=== PATIENT | female | born 1990 | race Caucasian/White ===

== ENCOUNTER 2016-11-16 16:47 | Emergency (ER) | payer OTHER ==
--- NOTE | 2016-11-16 16:53 | UC ---
Respiratory Complaint HPI - HPI Summary HPI Summary: Cough chills and body aches began 3 days ago. - History of Current Complaint Stated Complaint: CONGEST,COUGH Time Seen by Provider: 11/16/16 16:52 Hx Obtained From: Patient Hx Last Menstrual Period: 09/21/14 ?: No Onset/Duration: Sudden Onset, Lasting Days - 3, Still Present Timing: Constant Severity Initially: Mild Severity Currently: Mild Character: Cough: Nonproductive Aggravating Factors: Nothing Alleviating Factors: Nothing Associated Signs And Symptoms: Positive: Chills, Pleuritic Chest Pain, URI, Nasal Congestion - Allergies/Home Medications Allergies/Adverse Reactions: Allergies Allergy/AdvReac Type Severity Reaction Status Date / Time Ibuprofen Allergy Hives Verified 11/16/16 16:56 PMH/Surg Hx/FS Hx/Imm Hx Previously Healthy: Yes Endocrine History Of: Denies: Diabetes, Thyroid Disease Cardiovascular History Of: Denies: Cardiac Disorders, Hypertension Respiratory History Of: Denies: COPD, Asthma GI/ History Of: Denies: Ulcer - Surgical History Surgical History: Yes Surgery Procedure, Year, and Place: 2011 - Family History Known Family History: Positive: None Family History: no reported cardiovascular issues - Social History Occupation: Employed Full-time Lives: With Family Alcohol Use: Occasionally Substance Use Type: None Smoking Status (MU): Never Smoked Tobacco Review of Systems Constitutional: Fever, Chills, Fatigue Skin: Negative Eyes: Negative ENT: Negative Respiratory: Cough Cardiovascular: Negative Gastrointestinal: Negative Genitourinary: Negative Motor: Negative Neurovascular: Negative Musculoskeletal: Arthralgia Neurological: Negative Psychological: Negative All Other Systems Reviewed And Are Negative: Yes Physical Exam Triage Information Reviewed: Yes Appearance: No Pain Distress, Well-Nourished, Ill-Appearing - mild Vital Signs Reviewed: Yes Eye Exam: Normal Eyes: Positive: Conjunctiva Clear ENT Exam: Normal ENT: Positive: Normal ENT inspection, Hearing grossly normal, Pharynx normal, TMs normal. Negative: Nasal congestion, Nasal drainage, Tonsillar swelling, Tonsillar exudate, Trismus, Muffled/hoarse voice Dental Exam: Normal Neck exam: Normal Neck: Positive: Supple, Nontender, No Lymphadenopathy Respiratory Exam: Normal Respiratory: Positive: Chest non-tender, Lungs clear, Normal breath sounds, No respiratory distress, No accessory muscle use Cardiovascular Exam: Normal Cardiovascular: Positive: RRR, No Murmur, Pulses Normal, Brisk Capillary Refill Musculoskeletal Exam: Normal Musculoskeletal: Positive: Strength Intact, ROM Intact, No Edema Neurological Exam: Normal Neurological: Positive: Alert, Muscle Tone Normal Psychological Exam: Normal Skin Exam: Normal UC Diagnostic Evaluation - Laboratory Diagnostic Studies Comment: Rapid Flu (-) Respiratory Course/Dx - Course Course Of Treatment: Albuterol, zithromax, increase fluids, rest follow with pcp re-check prn - Differential Dx/Diagnosis Differential Diagnosis/HQI/PQRI: Bronchitis, Influenza, Laryngitis, Lower Resp Infection, Sinusitis Provider Diagnoses: Acute Bronchitis Discharge - Discharge Plan Condition: Stable Disposition: HOME Prescriptions: Albuterol HFA INHALER* [Ventolin HFA Inhaler*] 2 puff INH Q6H PRN #1 mdi PRN Reason: cough/wheeze Azithromycin TAB* [Zithromax TAB (Z-JAMES) 250 mg #6 tabs] 2 tab PO .TODAY, THEN 1 DAILY #1 james Patient Education Materials: How to Use a Metered-Dose Inhaler (ED), Acute Bronchitis (ED), Acute Cough (ED) Forms: *Work Release Referrals: Jose Robbins MD [Primary Care Provider] - If Needed
[2016-11-16 16:56] VITALS: BP 112/75
== END 2016-11-16 17:35 | disposition home or self-care (01) ==
LOC: UCEAST 16:47
DX: J20.9 Acute bronchitis, unspecified (principal); Z88.6 Allergy status to analgesic agent
CPT/HCPCS: 87502; 99212; G0463

== ENCOUNTER 2017-07-24 15:08 | Emergency (ER) | payer OTHER ==
[2017-07-24 15:22] VITALS: BP 124/79
--- NOTE | 2017-07-24 16:03 | RAD ---
HISTORY: Head injury, left orbit pain COMPARISONS: None TECHNIQUE: Multiple contiguous axial CT scans were obtained of the face without intravenous contrast, with coronal and sagittal multiplanar reformations. FINDINGS: BONES: There is no displaced fracture or dislocation. The orbital rim is intact. The zygomatic arch is intact. The pterygoid plates are intact. ORBITS: The globes are round. The optic nerves are symmetric. The extraocular musculature is normal. There is no post septal or intraconal inflammatory change. There is no retrobulbar hematoma. PARANASAL SINUSES: The paranasal sinuses are clear. BRAIN AND SOFT TISSUE: Unremarkable. OTHER: None. IMPRESSION: NO FACIAL FRACTURE
--- NOTE | 2017-07-24 16:03 | RAD ---
HISTORY: Head injury, headache COMPARISONS: None TECHNIQUE: Multiple contiguous axial CT scans were obtained of the head without intravenous contrast. FINDINGS: HEMORRHAGE/INFARCT: There is no hemorrhage or acute infarct. MASSES/SHIFT: There is no mass or shift. EXTRA-AXIAL SPACES: There are no extra-axial fluid collections. SULCI AND VENTRICLES: The sulci and ventricles are normal in size and position for the patient's stated age. CEREBRUM: There are no focal parenchymal abnormalities. BRAINSTEM: There are no focal parenchymal abnormalities. CEREBELLUM: There are no focal parenchymal abnormalities. VESSELS: The vessels are grossly normal. PARANASAL SINUSES: The paranasal sinuses are clear. ORBITS: The orbits are unremarkable. BONES AND SOFT TISSUE: No bone or soft tissue abnormalities are noted. OTHER: None IMPRESSION: NO ACUTE INTRACRANIAL PATHOLOGY.
--- NOTE | 2017-07-24 16:26 | UC ---
Minor Trauma HPI - HPI Summary HPI Summary: Patient presents with complaints of head trauma that occurred while at work at 5 :30 am today. 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 She reports a 30 second loss of vision, no LOC. She states she had a headache, and vomiting x 1, and has had nausea since then. She reports some difficulty with focusing. She denies dizziness, lightheadedness , or neck pain. - History of Current Complaint Chief Complaint: UCHeadInjury Stated Complaint: HEADACHE/DIZZINESS Time Seen by Provider: 07/24/17 15:29 Hx Obtained From: Patient Hx Last Menstrual Period: 07/16/17 Onset/Duration: Sudden Onset Onset Of Pain: Immediate Severity Initially: Moderate Severity Currently: Moderate Mechanism Of Injury: Blunt Trauma Aggravating Factor(s): Movement Alleviating Factor(s): Rest Associated Signs And Symptoms: Positive: Ecchymosis, Swelling - Risk Factors Penetrating Injury Risk Factors: Negative Compartment Syndrome Risk Factors: Pain - Allergies/Home Medications Allergies/Adverse Reactions: Allergies Allergy/AdvReac Type Severity Reaction Status Date / Time Ibuprofen Allergy Hives Verified 07/24/17 15:22 Home Medications: Home Medications Sertraline* [Zoloft*] 1 tab PO DAILY 07/24/17 [History Confirmed 07/24/17] PMH/Surg Hx/FS Hx/Imm Hx Previously Healthy: Yes - Surgical History Surgical History: Yes Surgery Procedure, Year, and Place: 2011 - Family History Known Family History: Positive: None Family History: no reported cardiovascular issues - Social History Occupation: Employed Full-time Lives: Alone Alcohol Use: Occasionally Substance Use Type: None Smoking Status (MU): Never Smoked Tobacco Review of Systems Constitutional: Negative Skin: Negative Eyes: Negative ENT: Negative Respiratory: Negative Cardiovascular: Negative Gastrointestinal: Vomiting, Nausea Genitourinary: Negative Motor: Negative Neurovascular: Negative Musculoskeletal: Negative Neurological: Headache All Other Systems Reviewed And Are Negative: Yes Physical Exam Triage Information Reviewed: Yes Appearance: Well-Appearing Vital Signs: Initial Vital Signs Temp 97.8 F 07/24/17 15:19 Pulse 79 07/24/17 15:19 Resp 18 07/24/17 15:19 BP 124/79 07/24/17 15:19 Pulse Ox 100 07/24/17 15:19 Eye Exam: Normal ENT Exam: Normal Neck exam: Normal Neck: Positive: 1 Respiratory Exam: Normal Cardiovascular Exam: Normal Musculoskeletal Exam: Normal Neurological Exam: Normal Psychological Exam: Normal Skin Exam: Normal - minor soft tissue swelling noted of left adventism, slight bruising noted. slight tenderness to palpation. no crepitus or deformity note., Other Minor Trauma Course/Dx - Course Course Of Treatment: Patient presents s/p traumatic injury of the left adventism while at work at 5;30 am. She did report a brief loss of vision decribes as "black out" lasting 30 seconds. She since has had no visual disturbances. Neuro exam was normal. CT brain and max-facial were both read by the radiologist as normal. She dose display symptoms consistent with concussion. I did RX zofran, and recommend tylenol or advil or headache. I also discusssed with the patient that if her symtpoms worsen, persist to go to the ER for repeat imaging. I did take her out of work tonight. She was told not to drive, climb up on anything off the ground. She verbalized and was in agreement with the discharge plan. - Differential Dx/Diagnosis Differential Diagnosis/HQI/PQRI: Contusion(s), Other - head trauma concussion Provider Diagnoses: head trauma. concussion. contusion Discharge - Discharge Plan Condition: Stable Disposition: HOME Prescriptions: Ondansetron TAB* [Zofran 4 MG Tab*] 4 mg PO Q6H PRN #14 tab MDD 4 PRN Reason: Nausea Patient Education Materials: Concussion (ED), Head Injury (ED) Forms: *Work Release Referrals: Jose Robbins MD [Primary Care Provider] - Additional Instructions: If your symptoms worsen go directly to the ER.
== END 2017-07-24 16:18 | disposition home or self-care (01) ==
LOC: UCEAST 15:08
DX: S06.0X9A Concussion with loss of consciousness of unspecified duration, initial encounter (principal); W20.8XXA Other cause of strike by thrown, projected or falling object, initial encounter; Y92.9 Unspecified place or not applicable; T14.8XXA Other injury of unspecified body region, initial encounter
CPT/HCPCS: 70450; 70486; 99212; G0463

== ENCOUNTER 2018-01-29 16:05 | Emergency (ER) | payer OTHER ==
[2018-01-29 16:19] VITALS: BP 123/84
[2018-01-29] MEDS ORDERED: Ketorolac INJ* 60 MG/2 ML VIAL IM ONE (16:30)
--- NOTE | 2018-01-29 17:03 | RAD ---
INDICATION: Neck pain. COMPARISON: There are no prior studies available for comparison. TECHNIQUE: 5 views of the cervical spine were obtained including lateral, oblique, AP, open-mouth odontoid views. FINDINGS: C1-C7 are visualized. The vertebra are in normal alignment. No prevertebral soft tissue swelling or fracture is seen. Disc spaces appear maintained. IMPRESSION: NO EVIDENCE FOR FRACTURE OR SUBLUXATION.
--- NOTE | 2018-01-29 17:04 | RAD ---
INDICATION: Back pain. COMPARISON: There are no prior studies available for comparison. TECHNIQUE: AP and lateral films of the dorsal spine were obtained. FINDINGS: There is a mild dorsal scoliosis convex toward the right side. The vertebra are otherwise in normal alignment. No fracture is seen. There is mild degenerative disc disease present in the mid and lower dorsal spine. IMPRESSION: 1. MILD SCOLIOSIS. 2. MILD DEGENERATIVE DISC DISEASE.
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
== END 2018-01-29 17:30 | disposition home or self-care (01) ==
LOC: UCEAST 16:05
DX: M54.9 Dorsalgia, unspecified (principal); M54.2 Cervicalgia
CPT/HCPCS: 72050; 72070; 99212; G0463; J1885

== ENCOUNTER 2018-12-25 16:29 | Emergency (ER) | payer OTHER ==
[2018-12-25 17:01] VITALS: BP 134/83
--- OUTSIDE RECORDS SUMMARY | 2018-12-25 17:08 | XMS REPORT | Continuity of Care Document ---
:1990 External Reference #:[id number] Author Name Argelia David Care Team Providers Name Role Phone Patient's Choice Primary Care Physician Unavailable Payers Date Identification Numbers Payment Provider Subscriber Policy Number: [id number] [employer] Nino Damon PayID: [id number] [address] [place] [address] Advance Directives Description No Information Available Problems Description No Information Family History Description No Information Available Social History Type Date Description Comments Sex Unknown Lives With Occupation Currently Working ETOH Use Occasionally consumes alcohol Tobacco Use Start: Unknown Patient has never smoked Smoking Status Reviewed: 12/20/18 Patient has never smoked Exercise Type/Frequency Exercises regularly Allergies, Adverse Reactions, Alerts Date Description Reaction Status Severity Comments 11/12/2018 NSAIDS Active 11/12/2018 Pantoprazole Active Medications Medication Date Status Form Strength Qnty SIG Indications Ordering Provider Tramadol Active Tablets 37.5-325mg 15tabs 1 tab by Shanae Hydrochloride 019 dev Ye M.D. /Acetbettyphkrystal every n 4-6 hours as needed pain Omeprazole Active Capsules DR 10mg 1 by Unknown 000 mouth every day Carafate Active Tablets 1gm 1 by Unknown 000 mouth four times a day Control Active Unknown 000 Immunizations Description No Information Available Vital Signs Date Vital Result Comment 12/20/2018 8:16am Height 61.0 inches 5'1" Heart Rate 87 /min BP Systolic 120 mmHg BP Diastolic 78 mmHg Respiratory Rate 18 /min Body Temperature 98.0 F Pain Level 1 11/29/2018 9:29am Height 61.0 inches 5'1" Weight 176.00 lb BP Systolic 124 mmHg BP Diastolic 82 mmHg Respiratory Rate 14 /min Body Temperature 97.7 F Pain Level 2 BMI (Body Mass Index) 33.3 kg/m2 11/12/2018 10:08am Height 61.0 inches 5'1" Weight 176.00 lb BP Systolic 138 mmHg BP Diastolic 70 mmHg Pain Level 2 BMI (Body Mass Index) 33.3 kg/m2 Results Test Date Facility Test Result H/L Range Note Laboratory test 12/11/2018 [facility] Surgical SEE RESULT 1 , [address] [place] [address] [phone] 1 [id number] 2 SEE RESULT BELOW Name: JESSI DAMON : [address]: Shanae Ye MD Acct: [id number] Unit: [id number] AGE: 28 Location: [facility] Re12/11/18 SEX: F Status: DONNA DUTTA SPEC: [id number] CHRISTOPHER: 12/11/18-0752 [facility] [address]: Shanae Ye MD REQ: [id number] RECD: 12/11/18 STATUS: SOUT _ ORDERED: LEVEL 3 COMMENTS: [id number] FINAL DIAGNOSIS Soft tissue, left wrist, excision: -- Ganglion cyst. PRE-OPERATIVE DIAGNOSIS Left dorsal wrist ganglion. GROSS DESCRIPTION The specimen is received in formalin labeled, Ganglion Cyst Left Wrist, and consists of a 2.0 by up to 1.4 x 0.8 cm levine-white irregular rubbery fibrous tissue fragment with scant adherent fat. The specimen is serially sectioned and entirely submitted in one cassette. Signed by and Reported on: Jose Yeh MD 1550 END OF REPORT DEPARTMENT OF PATHOLOGY, [address] [place] [address] Jose Yeh M.D. Director [facility] # [id number] Procedures Date Code Description Status 11/20/2018 99439 Carpal Tunnel Release Completed 11/20/2018 91411 Carpal Tunnel Release Completed Encounters Type Date Location Provider Dx Diagnosis Office Visit 11/12/2018 [facility] Ye, G56.01 Carpal tunnel 10:00a [facility], right upper limb M67.432 Ganglion, left wrist Plan of Treatment Future Appointment(s):01/10/2019 8:30 am - Sh[facility] Ye M[facility] at [facility]2018 - Shanae Ye M.D.M67.432 Ganglion, left wristFollow up:Follow up: 3 [id number] Carpal tunnel syndrome, right upper limb
--- OUTSIDE RECORDS SUMMARY | 2018-12-25 17:08 | XMS REPORT | Continuity of Care Document ---
:1990 External Reference #:[id number] Author Name Argelia David Care Team Providers Name Role Phone Patient's Choice Primary Care Physician Unavailable Payers Date Identification Numbers Payment Provider Subscriber Policy Number: [id number] [employer] Nino Odonnell PayID: [id number] [address] [place] [address] Advance Directives Description No Information Available Problems Description No Information Family History Description No Information Available Social History Type Date Description Comments Sex Unknown Lives With Occupation Currently Working ETOH Use Occasionally consumes alcohol Tobacco Use Start: Unknown Patient has never smoked Smoking Status Reviewed: 11/29/18 Patient has never smoked Exercise Type/Frequency Exercises regularly Allergies, Adverse Reactions, Alerts Date Description Reaction Status Severity Comments 11/12/2018 NSAIDS Active 11/12/2018 Pantoprazole Active Medications Medication Date Status Form Strength Qnty SIG Indications Ordering Provider Tramadol Active Tablets 37.5-325mg 15tabs 1 tab by Shanae Hydrochloride 019 dev Ye M.D. /Acetaminophkrystal every n 4-6 hours as needed pain Omeprazole Active Capsules DR 10mg 1 by Unknown 000 mouth every day Carafate Active Tablets 1gm 1 by Unknown 000 mouth four times a day Control Active Unknown 000 Immunizations Description No Information Available Vital Signs Date Vital Result Comment 11/29/2018 9:29am Height 61.0 inches 5'1" Weight 176.00 lb BP Systolic 124 mmHg BP Diastolic 82 mmHg Respiratory Rate 14 /min Body Temperature 97.7 F Pain Level 2 BMI (Body Mass Index) 33.3 kg/m2 11/12/2018 10:08am Height 61.0 inches 5'1" Weight 176.00 lb BP Systolic 138 mmHg BP Diastolic 70 mmHg Pain Level 2 BMI (Body Mass Index) 33.3 kg/m2 Results Description No Information Available Procedures Date Code Description Status 11/20/2018 96551 Carpal Tunnel Release Completed 11/20/2018 33828 Carpal Tunnel Release Completed Encounters Type Date Location Provider Dx Diagnosis Office Visit 11/12/2018 [facility] Ye G56.01 Carpal tunnel 10:00a [facility], right upper limb M67.432 Ganglion, left wrist Plan of Treatment Future Appointment(s):12/27/2018 8:30 am - Sh[facility]e Ye M[facility] at [facility]/11/2018 7:30 am - PAUL Denny at [facility]/11/2018 7:30 am - Sh[facility]e Ye M.D. at [facility]/29/2018 - Shanae Ye M.D.G56.01 Carpal tunnel syndrome, right upper limbFollow up:Follow up: 4 weeks
--- NOTE | 2018-12-25 18:44 | ED ---
Lower Extremity - HPI Summary HPI Summary: Patient complains of right ankle pain status post mechanical fall today. Denies any other pain injury or symptoms. - History of Current Complaint Chief Complaint: EDExtremityLower Stated Complaint: MY RIGHT ANKLE PER PT Time Seen by Provider: 12/25/18 18:38 Hx Obtained From: Patient Mechanism Of Injury: Fall From A Standing Position Onset of Pain: Immediate Onset/Duration: Hours Severity Initially: Severe Severity Currently: Severe Pain Intensity: 8 Pain Scale Used: 0-10 Numeric Timing: Constant Location: Is Discrete @ Character Of Pain: Throbbing Associated Signs And Symptoms: Positive: Negative Aggravating Factor(s): Standing, Movement, Weight Bearing Alleviating Factor(s): Rest, Elevation Able to Bear Weight: Yes - Allergies/Home Medications Allergies/Adverse Reactions: Allergies Allergy/AdvReac Type Severity Reaction Status Date / Time ibuprofen Allergy Severe body hives Verified 12/25/18 17:04 pineapple Allergy Severe throat Verified 12/25/18 17:04 mina ranitidine Allergy Severe GI Upset Verified 12/25/18 17:04 NSAIDS (Non-Steroidal Allergy Intermediate Hives Verified 12/25/18 17:04 Anti-Inflamma pantoprazole Allergy Intermediate Rash Verified 12/25/18 17:04 PMH/Surg Hx/FS Hx/Imm Hx Endocrine/Hematology History: Denies: Hx Anticoagulant Therapy Cardiovascular History: Denies: Hx Pacemaker/ICD GI History: Reports: Hx Gastroesophageal Reflux Disease Sensory History: Reports: Hx Contacts or Glasses - glasses for reading Denies: Hx Hearing Aid Opthamlomology History: Reports: Hx Contacts or Glasses - glasses for reading EENT History: Denies: Hx Deafness Neurological History: Denies: Hx Dementia Psychiatric History: Reports: Hx Anxiety, Hx Depression - Cancer History Hx Chemotherapy: No - Surgical History Surgery Procedure, Year, and Place: c section, 2011, [place]. right carpal tunnel release 11/20/18 Hx Anesthesia Reactions: No Infectious Disease History: No Infectious Disease History: Denies: Traveled Outside the [place] in Last 30 Days - Social History Alcohol Use: Weekly Alcohol Amount: 1 per week Substance Use Type: Reports: None Smoking Status (MU): Never Smoked Tobacco Review of Systems Constitutional: Negative Eyes: Negative ENT: Negative Cardiovascular: Negative Respiratory: Negative Gastrointestinal: Negative Genitourinary: Negative Musculoskeletal: Other Skin: Negative Neurological: Negative Psychological: Normal All Other Systems Reviewed And Are Negative: Yes Physical Exam - Summary Physical Exam Summary: Minimal swelling to right ankle. No erythema ecchymosis, deformity noted. PMS intact distally. Triage Information Reviewed: Yes Vital Signs On Initial Exam: Initial Vitals Temp Pulse Resp BP Pulse Ox 97.3 F 100 16 134/83 96 12/25/18 16:58 12/25/18 16:58 12/25/18 16:58 12/25/18 16:58 12/25/18 16:58 Vital Signs Reviewed: Yes Appearance: Positive: Well-Appearing Skin: Positive: Warm Head/Face: Positive: Normal Head/Face Inspection Eyes: Positive: Normal Neck: Positive: Supple Respiratory/Lung Sounds: Positive: Clear to Auscultation Cardiovascular: Positive: Normal Abdomen Description: Positive: Nontender Musculoskeletal: Positive: Normal Neurological: Positive: Normal Psychiatric: Positive: Normal AVPU Assessment: Alert - [place] Coma Scale Best Eye Response: 4 - Spontaneous Best Motor Response: 6 - Obeys Commands Best Verbal Response: 5 - Oriented Coma Scale Total: 15 Diagnostics - Vital Signs Vital Signs Temp Pulse Resp BP Pulse Ox 12/25/18 16:58 97.3 F 100 16 134/83 96 - Laboratory Lab Statement: Any lab studies that have been ordered have been reviewed, and results considered in the medical decision making process. Lower Extremity Course/Dx - Course Course Of Treatment: Patient complains of right ankle pain status post mechanical fall today. Denies any other pain injury or symptoms. Physical exam :Minimal swelling to right ankle. No erythema ecchymosis, deformity noted. PMS intact distally. Vital signs within normal limits. X-ray right ankle negative for acute process. Patient on his crutches. Gel ankle splint applied. - Diagnoses Provider Diagnoses: Ankle sprain Discharge - Sign-Out/Discharge Documenting (check all that apply): Patient Departure Patient Received Moderate/Deep Sedation with Procedure: No - Discharge Plan Condition: Stable Disposition: HOME Patient Education Materials: Ankle Sprain (ED), Ankle Stirrup Splint (ED) Referrals: No Primary Care Phys,NOPCP [Primary Care Provider] - Alden Dubon MD [Medical Doctor] - Additional Instructions: Rest, ice, elevation and ibuprofen for pain and swelling of right ankle. Weightbearing as tolerated. If pain does not improve in 5-7 days follow-up with orthopedics Dr. Dubon for further evaluation. Return to the ED for any new or worsening symptoms. - Billing Disposition and Condition Condition: STABLE Disposition: Home
== END 2018-12-25 18:50 | disposition home or self-care (01) ==
LOC: MERGE 16:29 → ED 16:29
DX: S93.401A Sprain of unspecified ligament of right ankle, initial encounter (principal); K21.9 Gastro-esophageal reflux disease without esophagitis; F32.9 Major depressive disorder, single episode, unspecified; F41.9 Anxiety disorder, unspecified; W19.XXXA Unspecified fall, initial encounter; Y92.9 Unspecified place or not applicable
CPT/HCPCS: 99282

== ENCOUNTER 2020-01-04 08:49 | Emergency (ER) | payer OTHER ==
--- OUTSIDE RECORDS SUMMARY | 2020-01-04 08:53 | XMS REPORT | Summary of Care ---
:1990 Author Organization [facility] Address [address] [address] Care Team Providers Name Role Phone Cony Agudelo NP Primary Care Provider Reason for Referral MRI/CAT/PET Scan (Routine) Status Reason Specialty Diagnoses / Procedures Referred By Contact Referred To Contact Closed Diagnoses History of section Pee Venegas MD Procedures US PREG AFTER FIRST TRIME[address] [address] Reason for Visit MRI/CAT/PET Scan (Routine) Status Reason Specialty Diagnoses / Procedures Referred By Contact Referred To Contact Closed Diagnoses History of section Pee Venegas MD Procedures US PREG AFTER FIRST [address] [address] Encounter Details Date Type Department Care Team Description 12/26/2019 Hospital Encounter [facility] Outpatient [address] [address] Allergies Active Allergy Reactions Severity Noted Date Comments Ibuprofen Hives 11/27/2013 Lactose GI Reaction 10/18/2019 Pineapple Swelling 05/21/2012 Mouth and facial swelling Pantoprazole Rash 07/25/2018 Ranitidine GI Reaction 08/30/2018 Vomiting and constipation, yellow urine documented as of this encounter (statuses as of 12/28/2019) Medications Medication Sig Dispensed Refills Start Date End Date Status Multiple Take by mouth. 0 Active Vitamins-Minerals (MULTIVITAMIN ADULT PO) Levonorgest-Eth Take 1 Tab by 91 Tab 3 01/22/2019 Active Estrad 91-Day mouth DAILY. 0.15-0.03 MG Oral TabIndications: Encounter for other contraceptive management sucralfate (CARAFATE) Take 1 Tab by 360 Tab 1 03/18/2019 Active 1 GM Oral mouth FOUR TIMES TabIndications: DAILY. Gastritis without bleeding, unspecified chronicity, unspecified gastritis type Omeprazole 40 MG Oral Take 1 Cap by 90 Cap 3 04/19/2019 Active CAPSULE DELAYED mouth DAILY. RELEASE MV & Min Take 2 Tabs by 0 Active w/FA-DHA ( mouth DAILY. ADULT GUMMY/DHA/FA PO) ondansetron (ZOFRAN Take 1 Tab by 20 Tab 0 10/28/2019 Active ODT) 4 MG Oral TABLET mouth EVERY EIGHT DISPERSIBLE HOURS NEEDED (nasuea). Doxylamine-Pyridoxine Take 10 mg by 60 Tab 0 12/09/2019 01/08/2020 Active (DICLEGIS) 10-10 MG mouth DAILY Oral Tab EC NEEDED (Initial: Two tablets at bedtime on day 1 and 2; if symptoms persist, take 1 tablet in morning and 2 tablets at bedtime on day 3; if symptoms persist, may increase to 1 tablet in morning, 1 tablet mid-afternoon, and 2 tablets at bedtime on day 4 (maximum: doxylamine 40 mg/pyridoxine 40 mg (4 tablets) per day).) for up to 30 days. ondansetron (ZOFRAN) Take 1 Tab by 30 Tab 0 12/09/2019 Active 4 MG Oral TABLET mouth EVERY EIGHT DISPERSIBLE HOURS NEEDED (nausea/vomiting) . fluticasone (FLONASE) [place] 2 Sprays in 1 Bottle 2 12/09/2019 Active 50 MCG/ACT Nasal nose DAILY. Suspension documented as of this encounter (statuses as of 12/28/2019) Active Problems Problem Noted Date History of placental abruption 11/14/2019 History of section 10/18/2019 Overview: Requesting repeat and tubal 05/08/20 LH Estimated Date of Delivery Comments Yes 05/12/2020 Based on last menstrual period of 08/06/2019 documented as of this encounter (statuses as of 12/28/2019) Resolved Problems Problem Noted Date Resolved Date Right wrist pain 01/27/2016 05/25/2016 S/P section: non reasurring FHR 08/19/2012 05/25/2016 ADDITIONAL PHYSICIAN 08/09/2012 08/18/2012 Overview: Please page or call Dr. Cardenas when patient is in active labor. 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 , Estimated Date of Delivery: 08/24/12 by early u/s, with LMP of 08/19/11, engaged to father of the baby. Lab Results Lab Results Value Date/Time ABORH O POS 03/05/2012 0933 Lab Results Lab Results Value Date/Time HCT 34.0 05/21/2012 1136 and Lab Results Lab Results Value Date/Time HGB 11.8 05/21/2012 1136 Lab Results Lab Results Value Date/Time HBSA 0.05 03/05/2012 0950 Lab Results Lab Results Value Date/Time RPR NON REAC 03/05/2012 0950 Lab Results Lab Results Value Date/Time RUBELLA 11.1 03/05/2012 0950 Lab Results Lab Results Value Date/Time GGTT 78 05/21/2012 1050 Varicella without mention of complication 06/23/2009 02/05/2011 Allergic rhinitis, cause unspecified 04/02/2009 08/14/2012 Foster care child 04/02/2009 08/14/2012 Injury, other and unspecified, elbow, forearm, and wrist 11/17/20082010 Other general symptoms(780.99) 11/02/2005 02/05/2011 Backache, unspecified 09/26/2005 02/06/2012 Injury, other and unspecified, knee, leg, ankle, and foot 12/26/20042010 Injury, other and unspecified, unspecified site 12/09/2004 02/05/2011 Varicella without mention of complication 08/14/2012 Overview: age 46 years old documented as of this encounter (statuses as of 12/28/2019) Immunizations Name Administration Dates Next Due DTAP Vaccine 07/24/1998, 04/12/1994, 05/25/1993, 03/04/1993, 02/08/1993 HIB 04/12/1994, 05/25/1993, 03/04/1993, 02/08/1993 Hepatitis A Vaccine Peds 08/28/2009, 02/12/2009 Hepatitis B Vaccine 08/23/1993, 02/08/1993, 1992 Human Papillomavirus 06/23/2009, 02/12/2009, 12/04/2008 Influenza (IM) Preservative Free 06/23/2009 MENINGOCOCCAL CONJUGATE VACCINE 12/04/2008 MMR VACCINE 07/24/1998, 04/12/1994 Polio - Inactivated Vaccine 07/24/1998, 04/12/1994, 03/04/1993, 02/08/1993 TDAP Vaccine 06/19/2017, 12/04/2008 TETANUS & DIPHTHERIA TOXOID (OVER 7 07/13/2004 YRS) documented as of this encounter Social History Tobacco Use Types Packs/Day Years Used Date Never Smoker Smokeless Tobacco: Never Used Alcohol Use Drinks/Week oz/Week Comments No Estimated Date of Delivery Comments Yes 05/12/2020 Based on last menstrual period of 08/06/2019 Sex Assigned at Date Recorded Not on file documented as of this encounter Last Filed Vital Signs Not on filedocumented in this encounter Plan of Treatment Date Type Specialty Care Team Description 01/28/2020 change management administrator Iggy Alcazar MD [address] [address] [phone] Health Maintenance Due Date Last Done Comments INFLUENZA VACCINE (#1) 2019 06/23/2009 PAP SMEAR 04/24/2020 04/24/2017, 11/06/2013, 11/06/2013 DEPRESSION SCREENING 10/18/2020 10/18/2019 DTaP/Tdap/Td Vaccines (9 - 06/19/2027 06/19/2017, 12/04/2008, Tdap) 07/13/2004, Additional history exists MENINGOCOCCAL VACCINE IMM Completed 12/04/2008 HPV IMMUNIZATION SERIES Completed 06/23/2009, 06/23/2009, 02/12/2009, Additional history exists HEPATITIS A IMMUNIZATION Completed 08/28/2009, 02/12/2009 SERIES HIV SCREENING Completed 10/18/2019, 03/05/2012 PNEUMOCOCCAL 0-64 YRS Aged Out No longer eligible based on patient's age to complete this topic documented as of this encounter Procedures Procedure Name Priority Date/Time Associated Diagnosis Comments US PREG AFTER FIRST STAT 12/26/2019 11:48 AM History of Results for this TRIMESTER EDT section procedure are in the results section. documented in this encounter Results US PREG AFTER FIRST TRIMESTER (12/26/2019 11:48 AM EDT) Specimen Impressions Performed At Single live intrauterine gestation in cephalic presentation showing expected interval growth with composite sonographic age of 19 weeks 5 days based on today's measurements. EFW 306 g ( 16th percentile). anatomic survey is complete and shows no obvious abnormalities.. Fundal placenta which appears bilobed with possible velamentous cord insertion site in between the 2 lobes. Urgency: IMPORTANT. This report contains IMPORTANT results which require clinical attention. Recommendation: Consider short interval follow-up imaging to assure adequate growth. Signed by Alden Delgado MD on 12/27/2019 9:38 AM Narrative Performed At Procedure(s): US PREG AFTER FIRST TRIMESTER Date of service: 12/26/2019 10:24 AM Provided clinical information: 29 years, Female, " anatomy survey" Procedure and materials: Standard protocol. Comparison studies: None. Observations: A single live Intrauterine is identified. The presentation is cephalic The placenta is fundal with no evidence of previa the. It however appears bilobed with fairly equal portions extending anteriorly and posteriorly and possible velamentous cord insertion in between 2 lobes. The cervical os is closed and the maternal cervical length is 5.4 cm The heart rate is 155 bpm. The amount of amniotic fluid is visually adequate . anatomy namely a 4 chamber heart and right and left ventricular outflow tracts, head and intracranial structures (cerebellum, cisterna magna, lateral ventricles, cavum septum pellucidum , choroid plexus, ) , nuchal fold thickness, face (orbits, nose and lips region, face in profile, nasal bone ) , spine (cervical , thoracic, lumbar, sacral), upper and lower extremities, diaphragm, stomach, kidneys, urinary bladder, three-vessel cord and its abdominal insertion site are all identified -and show no obvious abnormality. . The following sonographic measurements were obtained. BPD 4.5 cm, 19 weeks 5 days HC 17.3 cm, 19 weeks 6 days AC 14.7 cm, 20 weeks 0 days FL 3.0 cm, 19 weeks 2 days The estimated gestational age based on these measurements is 19 weeks 5 days indicating interval growth. The estimated weight is 306 g which is in the 16th percentile Procedure Note Interface, Rad Results - 12/27/2019 9:40 AM EDT Procedure(s): US PREG AFTER FIRST TRIMESTER Date of service: 12/26/2019 10:24 AM Provided clinical information: 29 years, Female, " anatomy survey" Procedure and materials: Standard protocol. Comparison studies: None. Observations: A single live Intrauterine is identified. The presentation is cephalic The placenta is fundal with no evidence of previa the. It however appears bilobed with fairly equal portions extending anteriorly and posteriorly and possible velamentous cord insertion in between 2 lobes. The cervical os is closed and the maternal cervical length is 5.4 cm The heart rate is 155 bpm. The amount of amniotic fluid is visually adequate . anatomy namely a 4 chamber heart and right and left ventricular outflow tracts, head and intracranial structures (cerebellum, cisterna magna, lateral ventricles, cavum septum pellucidum , choroid plexus, ) , nuchal fold thickness, face (orbits, nose and lips region, face in profile, nasal bone ) , spine (cervical , thoracic, lumbar, sacral), upper and lower extremities, diaphragm, stomach, kidneys, urinary bladder, three-vessel cord and its abdominal insertion site are all identified -and show no obvious abnormality. . The following sonographic measurements were obtained. BPD 4.5 cm, 19 weeks 5 days HC 17.3 cm, 19 weeks 6 days AC 14.7 cm, 20 weeks 0 days FL 3.0 cm, 19 weeks 2 days The estimated gestational age based on these measurements is 19 weeks 5 days indicating interval growth. The estimated weight is 306 g which is in the 16th percentile IMPRESSION Single live intrauterine gestation in cephalic presentation showing expected interval growth with composite sonographic age of 19 weeks 5 days based on today's measurements. EFW 306 g ( 16th percentile). anatomic survey is complete and shows no obvious abnormalities.. Fundal placenta which appears bilobed with possible velamentous cord insertion site in between the 2 lobes. Urgency: IMPORTANT. This report contains IMPORTANT results which require clinical attention. Recommendation: Consider short interval follow-up imaging to assure adequate growth. Signed by Alden Delgado MD on 12/27/2019 9:38 AM documented in this encounter Visit Diagnoses Diagnosis History of section Other postprocedural status documented in this encounter Insurance Payer Benefit Plan / Subscriber ID Effective Dates Phone Address Type Group [employer]CIAL [employer] [id number] 2018-Present [employer] (Home) [facility] [phone] (Work) [place] [address] documented as of this encounter
--- OUTSIDE RECORDS SUMMARY | 2020-01-04 08:53 | XMS REPORT | Summary of Care ---
:1990 Author Organization [facility] Address 1 [facility] [place] [address] Care Team Providers Name Role Phone Cony Agudelo NP Primary Care Provider Reason for Visit Reason Comments Fall Encounter Details Date Type Department Care Team Description 12/26/2019 - Emergency [facility] Emergency Department Ehsna Hopkins DO Emergency 12/27/[address] [facility] [place] [address] [place] [address] [phone] Allergies Active Allergy Reactions Severity Noted Date [...] DISPERSIBLE HOURS NEEDED (nausea/vomiting) . fluticasone (FLONASE) [place] 2 Sprays in 1 Bottle 2 12/09/2019 Active 50 MCG/ACT Nasal nose DAILY. 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 , Estimated Date of Delivery: 08/24/12 [...] of this encounter Last Filed Vital Signs Vital Sign Reading Time Taken Comments Blood Pressure 110/58 12/26/2019 11:00 PM EDT Pulse 72 12/27/2019 3:30 AM EDT Temperature 36.2 12/26/2019 9:52 PM EDT C (97.1 F) Respiratory Rate 18 12/27/2019 3:30 AM EDT Oxygen Saturation 99% 12/27/2019 3:30 AM EDT Inhaled Oxygen Concentration - - Weight 77.6 kg (171 lb) 12/26/2019 9:45 PM EDT Height 154.9 cm (5' 1") 12/26/2019 9:45 PM EDT Body Mass Index 32.31 12/26/2019 9:45 PM EDT documented in this encounter Discharge Instructions Ehsan oJvel DO - 12/27/2019Tylenol 650 mg every 4 hours as needed for pain Consider ice 4-5 times daily x10 to 15 minutes Return to the emergency department if worsening symptoms documented in this encounter Plan of Treatment Date Type Specialty Care Team Description 01/28/2020 risk specialist Iggy Alcazar MD [address] [place] [address] [phone] Health Maintenance Due Date Last Done Comments [...] encounter Procedures Procedure Name Priority Date/Time Associated Comments Diagnosis US LIMITED STAT 12/27/2019 2:43 Results for this STUDY AM EDT procedure are in the results section. CBC WITH DIFFERENTIAL STAT 12/27/2019 1:39 Results for this AM EDT procedure are in the results section. XR HIP 2 VIEWS Routine 12/27/2019 12:22 Results for this UNILATERAL LEFT AM EDT procedure are in the results section. XR RIBS UNILAT WITH STAT 12/27/2019 12:16 Results for this PA CHEST MIN 3 VIEWS AM EDT procedure are in RIGHT the results section. XR FINGER OR FINGERS STAT 12/27/2019 12:13 Results for this MIN 2 VIEWS LEFT AM EDT procedure are in (STANDARD) the results section. documented in this encounter Results US LIMITED STUDY (12/27/2019 2:43 AM EDT) Specimen Impressions Performed At Single living intrauterine fetus. No acute complication evident. Signed by Pierce Ruiz on 12/27/2019 2:46 AM Narrative Performed At Procedure(s): US LIMITED STUDY Date of service: 12/27/2019 2:23 AM Provided clinical information: 29 years, Female, "20 weeks trauma, check placenta and viability" Procedure and materials: Limited transabdominal obstetrical ultrasound was performed. Comparison studies: Earlier today and 10/18/2019. Observations: There is a living single intrauterine fetus in transverse maternal right positioning. Normal heart rate of 143 bpm. assessment is otherwise limited. Amniotic fluid volume is grossly within normal limits. The placenta is anterior wrapping posteriorly across the left uterus and appears grossly within normal limits with no evidence for abruption. The cervix is long and closed measuring 4 cm in length. Procedure Note Interface, Rad Results - 12/27/2019 2:48 AM EDT Procedure(s): US LIMITED STUDY Date of service: 12/27/2019 2:23 AM Provided clinical information: 29 years, Female, "20 weeks trauma, check placenta and viability" Procedure and materials: Limited transabdominal obstetrical ultrasound was performed. Comparison studies: Earlier today and 10/18/2019. Observations: There is a living single intrauterine fetus in transverse maternal right positioning. Normal heart rate of 143 bpm. assessment is otherwise limited. Amniotic fluid volume is grossly within normal limits. The placenta is anterior wrapping posteriorly across the left uterus and appears grossly within normal limits with no evidence for abruption. The cervix is long and closed measuring 4 cm in length. IMPRESSION Single living intrauterine fetus. No acute complication evident. Signed by Pierce Ruiz on 12/27/2019 2:46 AM CBC WITH DIFFERENTIAL (12/27/2019 1:39 AM EDT) WBC Count 7.50 3.98 - 10.04 K/uL [facility] RBC Count 3.64 (L) 3.93 - 5.22 M/UL [facility] Hemoglobin 11.5 11.2 - 15.7 g/dL [facility] Hematocrit 33.3 (L) 34.1 - 44.9 % [facility] MCV 91.5 79.4 - 94.8 FL [facility] MCH 31.6 25.6 - 32.2 PG [facility] MCHC 34.5 32.2 - 35.5 g/dL [facility] Platelet Count 233 182 - 369 K/uL [facility] MPV 9.3 (L) 9.4 - 12.3 FL [facility] RDW 13.1 11.7 - 14.4 % [facility] Neutrophil % 67.7 34.0 - 71.1 % [facility] Lymphocyte % 25.1 19.3 - 51.7 % [facility] Monocyte % 6.4 4.7 - 12.5 % [facility] Eosinophil % 0.4 (L) 0.7 - 5.8 % [facility] Basophil % 0.1 0.1 - 1.2 % [facility] nRBC % 0.0 0.0 - 0.2 % [facility] Neutrophil # 5.08 1.56 - 6.13 K/UL [facility] Lymphocyte # 1.88 1.18 - 3.74 K/UL [facility] Monocyte # 0.48 0.24 - 0.86 K/UL [facility] Eosinophil # 0.03 (L) 0.04 - 0.36 K/UL [facility] Basophil # 0.01 0.01 - 0.08 K/UL [facility] Immature Gran % 0.3 0.0 - 0.4 % [facility] Immature Gran # 0.02 0.00 - 0.03 K/uL [facility] NRBC # 0.00 0.00 - 0.12 K/uL [facility] Specimen Blood - Blood specimen (specimen) Performing Organization Address City/State/Zipcode Phone Number [facility] [address] [place] [address] XR HIP 2 VIEWS UNILATERAL LEFT (12/27/2019 12:22 AM EDT) Specimen Impressions Performed At Negative left hip. Signed by Pierce Ruiz on 12/27/2019 12:56 AM Narrative Performed At Procedure(s): XR HIP 2 VIEWS UNILATERAL LEFT Date of service: 12/26/2019 11:48 PM Provided clinical information: 29 years, Female, "pt fell. pain left hip. pt is 20 weeks " Procedure and materials: Standard protocol. Comparison studies: None. Observations: Side: Two-view left hip. Bones: Intact with no displaced fracture or focal osseous destruction. Joints: There is anatomic alignment of the hip with normal joint space. Soft tissues: Unremarkable. Procedure Note Interface, Rad Results - 12/27/2019 12:58 AM EDT Procedure(s): XR HIP 2 VIEWS UNILATERAL LEFT Date of service: 12/26/2019 11:48 PM Provided clinical information: 29 years, Female, "pt fell. pain left hip. pt is 20 weeks " Procedure and materials: Standard protocol. Comparison studies: None. Observations: Side: Two-view left hip. Bones: Intact with no displaced fracture or focal osseous destruction. Joints: There is anatomic alignment of the hip with normal joint space. Soft tissues: Unremarkable. IMPRESSION Negative left hip. Signed by Pierce Ruiz on 12/27/2019 12:56 AM XR RIBS UNILAT WITH PA CHEST MIN 3 VIEWS RIGHT (12/27/2019 12:16 AM EDT) Specimen Impressions Performed At Negative chest and rib series. Signed by Pierce Ruiz on 12/27/2019 12:57 AM Narrative Performed At Procedure(s): XR RIBS UNILAT WITH PA CHEST MIN 3 VIEWS RIGHT Date of service: 12/26/2019 11:48 PM Provided clinical information: 29 years, Female, "fall, pain right ribs, 20 weeks " Procedure and materials: Standard protocol. Comparison studies: None. Observations: The lungs are clear. There is no pneumothorax or effusion. The cardiomediastinal silhouette is normal. There is no acute osseous abnormality. The ribs are unremarkable. Procedure Note Interface, Rad Results - 12/27/2019 12:59 AM EDT Procedure(s): XR RIBS UNILAT WITH PA CHEST MIN 3 VIEWS RIGHT Date of service: 12/26/2019 11:48 PM Provided clinical information: 29 years, Female, "fall, pain right ribs, 20 weeks " Procedure and materials: Standard protocol. Comparison studies: None. Observations: The lungs are clear. There is no pneumothorax or effusion. The cardiomediastinal silhouette is normal. There is no acute osseous abnormality. The ribs are unremarkable. IMPRESSION Negative chest and rib series. Signed by Pierce Ruiz on 12/27/2019 12:57 AM XR FINGER OR FINGERS MIN 2 VIEWS LEFT (STANDARD) (12/27/2019 12:13 AM EDT) Specimen Impressions Performed At No acute osseous or articular abnormality evident. Signed by Pierce Ruiz on 12/27/2019 12:19 AM Narrative Performed At Procedure(s): XR FINGER OR FINGERS MIN 2 VIEWS LEFT (STANDARD) Date of service: 12/26/2019 11:47 PM Provided clinical information: 29 years, Female, "pain left thenar eminence pt is 20 weeks " Procedure and materials: Standard protocol. Comparison studies: 02/18/2018 Observations: Side: Two-view left thumb. Bones: Intact with no displaced fracture or focal osseous destruction. Joints: There is anatomic alignment with normal joint spaces. Soft tissues: Unremarkable. Procedure Note Interface, Rad Results - 12/27/2019 12:21 AM EDT Procedure(s): XR FINGER OR FINGERS MIN 2 VIEWS LEFT (STANDARD) Date of service: 12/26/2019 11:47 PM Provided clinical information: 29 years, Female, "pain left thenar eminence pt is 20 weeks " Procedure and materials: Standard protocol. Comparison studies: 02/18/2018 Observations: Side: Two-view left thumb. Bones: Intact with no displaced fracture or focal osseous destruction. Joints: There is anatomic alignment with normal joint spaces. Soft tissues: Unremarkable. IMPRESSION No acute osseous or articular abnormality evident. Signed by Pierce Ruiz on 12/27/2019 12:19 AM documented in this encounter Visit Diagnoses Diagnosis Contusion of rib on right side, initial encounter Contusion of left hand, initial encounter Contusion of left hip, initial encounter documented in this encounter Administered Medications Medication Order MAR Action Action Date Dose Rate Site acetaminophen (TYLENOL) tablet Given 12/26/2019 11:29 PM EDT 650 mg 650 mg 650 mg, Oral, NOW, 1 dose, Pascale 12/26/19 at 2300 documented in this encounter Insurance Payer Benefit Plan / Subscriber ID Effective Dates Phone Address Type Group [employer] COMM[employer]CIAL AETNA [id number] 2018-Present [employer] (Home) [facility] [phone] ([place]) [place] [address] documented as of this encounter
--- OUTSIDE RECORDS SUMMARY | 2020-01-04 08:53 | XMS REPORT | Summary of Care ---
:1990 Author Organization [facility] Address [address] [place] [address] Care Team Providers Name Role Phone MagnusCony Todd MORALES Primary Care Provider Reason for Visit Reason Comments Congestion Ear Pain Encounter Details Date Type Department Care Team Description 12/09/2019 Emergency [facility] Emergency Department Daniel Galvan MD Emergency [address] [place] [address] [place] [address] Allergies Active Allergy Reactions Severity Noted Date Comments Ibuprofen Hives 11/27/2013 Lactose GI Reaction 10/18/2019 Pineapple Swelling 05/21/2012 Mouth and facial swelling Pantoprazole Rash 07/25/2018 Ranitidine GI Reaction 08/30/2018 Vomiting and constipation, yellow urine documented as of this encounter (statuses as of 12/10/2019) Medications Medication Sig Dispensed Refills Start Date [...] DISPERSIBLE HOURS NEEDED (nausea/vomiting) . fluticasone (FLONASE) [place] 2 Sprays in 1 Bottle 2 12/09/2019 Active 50 MCG/ACT Nasal nose DAILY. Suspension documented as of this encounter (statuses as of 12/10/2019) Active Problems Problem Noted Date History of placental abruption 11/14/2019 History of section 10/18/2019 Overview: Requesting repeat and tubal Estimated Date of Delivery Comments Yes 05/12/2020 Based on last menstrual period of 08/06/2019 documented as of this encounter (statuses as of 12/10/2019) Resolved Problems Problem Noted Date Resolved Date Right wrist pain 01/27/2016 05/25/2016 S/P section: non reasurring FHR 08/19/2012 05/25/2016 ADDITIONAL PHYSICIAN 08/09/2012 08/18/2012 Overview: Please page or call Dr. Cardenas when patient is in active labor. 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 , Estimated Date of Delivery: 08/24/12 [...] as of this encounter (statuses as of 12/10/2019) Immunizations Name Administration Dates Next Due DTAP [...] Sign Reading Time Taken Comments Blood Pressure 145/64 12/09/2019 12:38 PM EST Pulse 84 12/09/2019 12:38 PM EST Temperature 36.9 12/09/2019 12:38 PM EST C (98.5 F) Respiratory Rate 16 12/09/2019 12:38 PM EST Oxygen Saturation 98% 12/09/2019 12:38 PM EST Inhaled Oxygen Concentration - - Weight - - Height - - Body Mass Index - - documented in this encounter Discharge Instructions Nelly Gao RN - 12/09/2019Diclegis instructions (1st line for nausea): Two tablets at bedtime on day 1 and 2; if symptoms persist, take 1 tablet in morning and 2 tablets at bedtime on day 3; if symptoms persist, may increase to1 tablet in morning, 1 tablet mid-afternoon, and 2 tablets at bedtime on day 4 (maximum: doxylamine 40 mg/pyridoxine 40 mg (4 tablets) per day ). Zofran (2nd line for nausea) as discussed. No signs of bacterial sinusitis, upper respiratory infection of placental abruption were found. HR was 143 at the bedside with good movement and was unremarkable. Return to ED if abdominal pain presents, fevers, worsening symptoms, onset of new symptoms, or if there is any other concern that is thought to need medical evaluation. Follow up with PCP or ADMINISTRATIVE OFFICE SPECIALIST for further management. documented in this encounter Plan of Treatment Date Type Specialty Care Team Description 12/26/2019 law enforcement officer Rafa Florez MD [address] [place] [address] [phone] 12/26/2019 Appointment Radiology Health Maintenance Due Date Last Done Comments [...] this topic documented as of this encounter Results Not on filedocumented in this encounter Visit Diagnoses Diagnosis Sinusitis, unspecified chronicity, unspecified location documented in this encounter Administered Medications Medication Order MAR Action Action Date Dose Rate Site ondansetron (ZOFRAN ODT) soluble Given 12/09/2019 11:58 AM EST 4 mg tablet 4 mg 4 mg, Oral, X1, 1 dose, First dose on 12/09/19 at 1210 documented in this encounter Insurance Payer Benefit Plan / Subscriber ID Effective Dates Phone Address Type Group [employer] COMM[employer]CIAL A[employer]NA [id number] 2018-Present [employer] (Home) [facility] [phone] (Work) [place] [address] documented as of this encounter
--- OUTSIDE RECORDS SUMMARY | 2020-01-04 08:53 | XMS REPORT | Summary of Care ---
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; [place] [address] [address] 18 weeks gestation of ; [phone] [place] [address] Acute intractable headache, unspecified headache type [phone] Allergies Active Allergy Reactions Severity Noted Date Comments Ibuprofen Hives 11/27/2013 Lactose GI Reaction 10/18/2019 Pineapple Swelling 05/21/2012 Mouth and facial swelling Pantoprazole Rash 07/25/2018 Ranitidine GI Reaction 08/30/2018 Vomiting and constipation, yellow urine documented as of this encounter (statuses as of 12/09/2019) Medications Medication Sig Dispensed Refills Start Date End Date Status Multiple Take by mouth. 0 Active Vitamins-Minerals (MULTIVITAMIN ADULT PO) Levonorgest-Eth Estrad Take 1 Tab by 91 Tab 3 01/22/2019 Active 91-Day 0.15-0.03 MG Oral mouth DAILY. TabIndications: Encounter for other contraceptive management sucralfate (CARAFATE) 1 Take 1 Tab by 360 Tab 1 03/18/2019 Active GM Oral TabIndications: mouth FOUR TIMES Gastritis without DAILY. bleeding, unspecified chronicity, unspecified gastritis type Omeprazole 40 MG Oral Take 1 Cap by 90 Cap 3 04/19/2019 Active CAPSULE DELAYED RELEASE mouth DAILY. MV & Min Take 2 Tabs by 0 Active w/FA-DHA ( ADULT mouth DAILY. GUMMY/DHA/FA PO) ondansetron (ZOFRAN ODT) Take 1 Tab by 20 Tab 0 10/28/2019 Active 4 MG Oral TABLET mouth EVERY DISPERSIBLE EIGHT HOURS NEEDED (nasuea). documented as of this encounter (statuses as of 12/09/2019) Active Problems Problem Noted Date History of placental abruption 11/14/2019 History of section 10/18/2019 Overview: Requesting repeat and tubal Estimated Date of Delivery Comments Yes 05/12/2020 Based on last menstrual period of 08/06/2019 documented as of this encounter (statuses as of 12/09/2019) Resolved Problems Problem Noted Date Resolved Date Right wrist pain 01/27/2016 05/25/2016 S/P section: non reasurring FHR 08/19/2012 05/25/2016 ADDITIONAL PHYSICIAN 08/09/2012 08/18/2012 Overview: Please page or call Dr. Cardenas when patient is in active labor. 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 , Estimated Date of Delivery: 08/24/12 [...] as of this encounter (statuses as of 12/09/2019) Immunizations Name Administration Dates Next Due DTAP [...] Sign Reading Time Taken Comments Blood Pressure 102/70 12/09/2019 8:47 AM EST Pulse 89 12/09/2019 8:47 AM EST Temperature 37.2 12/09/2019 8:47 AM EST C (98.9 F) Respiratory Rate 20 12/09/2019 8:47 AM EST Oxygen Saturation 99% 12/09/2019 8:47 AM EST Inhaled Oxygen Concentration - - Weight - - Height - - Body Mass Index - - documented in this encounter Progress Notes Jacinda Barton FNP-C - 12/09/2019 8:10 AM EST 29 yo female , 18 weeks with 2-3 days of increasing dizziness, headaches, runny nose. She is becoming very concerned about the dizziness. Has had stuffiness x 3 weeks. She feels the dizziness is becoming more prominent. She is crying today as she feels there is something more worrisome, especially since she is . This is her 2nd child. Hx of placental abruption in past also. Pt is very tearful today. At this point, exam appears benign other than some mild clear nasal congestion. Ears are normal andno infections or effusions Due to dizziness and pt worried something is extremely wrong, pt referred to ED , as she states she does not have a PCP she sees anymore. Vitals are stable BP 102/70 Pulse 89 Temp 98.9 F (37.2 C) (Tympanic) Resp 20 LMP 08/06 SpO2 99% ADRIENNE Shaikh ICD-9-CM ICD-10-CM 1. ERRONEOUS ENCOUNTER--DISREGARD 2. Dizziness 780.4 R42 3. 18 weeks gestation of V22.2 Z3A.18 4. Acute intractable headache, unspecified headache type 784.0 R51 documented in this encounter Plan of Treatment Date Type Specialty Care Team Description 12/26/2019 funeral pre arrangement specialist Rafa Florez MD [address] [place] [address] [phone] 12/26/2019 Appointment Radiology Health Maintenance Due Date [...] filedocumented in this encounter Visit Diagnoses Diagnosis Dizziness Dizziness and giddiness 18 weeks gestation of state, incidental ERRONEOUS ENCOUNTER--DISREGARD Acute intractable headache, unspecified headache type documented in this encounter Insurance Payer Benefit Plan / Subscriber ID Effective Dates Phone Address Type Group [employer] A[employer] [id number] 2018-Present [employer] (Home) [facility] [phone] (Work) [place] [address] documented as of this encounter
[2020-01-04 09:08] VITALS: BP 114/74
--- NOTE | 2020-01-04 09:25 | UC ---
Eye Complaint HPI - HPI Summary HPI Summary: yesterday she felt a pressure in her R eye - started to look pinkish before bed. denies injury or FB sensation thi mika she awoke with R eye lids crusted shut with thick yellow discharge. no vision changes. eye is still red and draining today - History of Current Complaint Chief Complaint: UCEye Stated Complaint: EYE COMPLAINT Time Seen by Provider: 01/04/20 08:55 Hx Obtained From: Patient Hx Last Menstrual Period: 6 wks ago ?: Yes Onset/Duration: Sudden Onset Severity Initially: Mild Severity Currently: Mild Pain Intensity: 2 Alleviating Factor(s): Nothing Associated Signs And Symptoms: Positive: Drainage (Purulent). Negative: Photophobia, Vision Impairment Bilateral, Fever - Allergies/Home Medications Allergies/Adverse Reactions: Allergies Allergy/AdvReac Type Severity Reaction Status Date / Time pineapple Allergy Severe throat Verified 01/04/20 09:08 mina ranitidine Allergy Severe GI Upset Verified 01/04/20 09:08 NSAIDS (Non-Steroidal Allergy Intermediate Hives Verified 01/04/20 09:08 Anti-Inflamma pantoprazole Allergy Intermediate Rash Verified 01/04/20 09:08 ibuprofen Allergy Hives Verified 01/04/20 09:08 Home Medications: Home Medications Sucralfate [Carafate] 1 gm PO BID 11/14/18 [History Confirmed 01/04/20] Ofloxacin 0.3% (Eye Drop) [Ocuflox OPTH 0.3% (Eye Drop)] 1 - 2 drop RIGHT EYE Q4H #1 btl 01/04/20 [Rx] Ondansetron ODT TAB* [Zofran 4 MG Odt TAB*] 4 mg PO Q6H PRN 01/04/20 [History Confirmed 01/04/20] Prenat 115/Iron Fum/Folic/Dss [ 19 Tablet] 1 tab PO DAILY 01/04/20 [ History Confirmed 01/04/20] PMH/Surg Hx/FS Hx/Imm Hx Previously Healthy: Yes Other History Of: Negative For: Anticoagulant Therapy - Surgical History Surgical History: Yes Surgery Procedure, Year, and Place: c section, 2011, [place] [facility]. right carpal tunnel release 11/20/18 - Family History Known Family History: Positive: None Negative: Cardiac Disease, Hypertension, Diabetes Family History: no reported cardiovascular issues - Social History Occupation: Employed Full-time Lives: With Family Alcohol Use: None Alcohol Amount: 1 per week Substance Use Type: None Smoking Status (MU): Never Smoked Tobacco Review of Systems All Other Systems Reviewed And Are Negative: Yes Constitutional: Positive: Negative. Negative: Fever, Fatigue Skin: Positive: Negative. Negative: Rash Eyes: Positive: Drainage, Eye Redness. Negative: Blurred Vision, Photophobia ENT: Positive: Negative Respiratory: Positive: Negative. Negative: Shortness Of Breath, Cough Cardiovascular: Positive: Negative Psychological: Positive: Negative Is Patient Immunocompromised?: No Physical Exam Triage Information Reviewed: Yes Appearance: Well-Appearing, No Pain Distress, Well-Nourished Vital Signs: Initial Vital Signs Temp 98.0 F 01/04/20 09:06 Pulse 102 01/04/20 09:06 Resp 15 01/04/20 09:06 BP 114/74 01/04/20 09:06 Pulse Ox 100 01/04/20 09:06 Vital Signs Reviewed: Yes Eyes: Positive: Conjunctiva Inflamed, Discharge - yellow crusted R eyelashes ENT Exam: Normal Neck exam: Normal Neck: Positive: Supple, Nontender, No Lymphadenopathy Respiratory Exam: Normal Respiratory: Positive: Lungs clear Cardiovascular Exam: Normal Cardiovascular: Positive: RRR Neurological Exam: Normal Neurological: Positive: Alert Psychological Exam: Normal Eye Complaint Course/Dx - Differential Dx/Diagnosis Differential Diagnosis/HQI/PQRI: Conjunctivitis, Corneal Abrasion, Foreign Body Provider Diagnosis: Conjunctivitis Discharge ED - Sign-Out/Discharge Documenting (check all that apply): Patient Departure All imaging exams completed and their final reports reviewed: No Studies - Discharge Plan Condition: Good Disposition: HOME Prescriptions: Ofloxacin 0.3% (Eye Drop) [Ocuflox OPTH 0.3% (Eye Drop)] 1 - 2 drop RIGHT EYE Q4H #1 btl Patient Education Materials: Conjunctivitis (ED) Referrals: Jose Robbins MD [Primary Care Provider] - 2 Days (if no better) Additional Instructions: use very good hand washing after touching eye. Use eye drops as directed and report worsening - Billing Disposition and Condition Condition: GOOD Disposition: Home
== END 2020-01-04 09:56 | disposition home or self-care (01) ==
LOC: UCEAST 08:49
DX: H10.31 Unspecified acute conjunctivitis, right eye (principal); Z88.6 Allergy status to analgesic agent; Z88.8 Allergy status to other drugs, medicaments and biological substances; Z91.018 Allergy to other foods
CPT/HCPCS: 99211; G0463